=== PATIENT | female | born 1950 | race Caucasian/White ===

== ENCOUNTER 2017-06-03 08:43 | Emergency (ER) | payer MEDICARE, BC ==
[2017-06-03] MEDS: KETOROLAC 60 MG/2 ML INJ. IM (09:02)
== END 2017-06-03 10:19 | disposition home or self-care (01) ==
LOC: ER 10:19
DX: S29.9XXA Unspecified injury of thorax, initial encounter (principal); R00.2 Palpitations; I10 Essential (primary) hypertension; W01.0XXA Fall on same level from slipping, tripping and stumbling without subsequent striking against object, initial encounter; Y93.01 Activity, walking, marching and hiking; Y99.8 Other external cause status; Y92.89 Other specified places as the place of occurrence of the external cause
CPT/HCPCS: 71250; 96372; 99284-25; J1885